=== PATIENT | female | born 1975 | race Caucasian/White ===

== ENCOUNTER 2016-08-16 06:50 | Emergency (ER) | payer BC ==
[2016-08-16 07:07] VITALS: RESP 16; TEMP 98.4
[2016-08-16 07:22] VITALS: O2SAT 96
[2016-08-16 07:41] VITALS: BP 138/91; PULSE 84
== END 2016-08-16 07:33 | disposition home or self-care (01) ==
LOC: ED 06:50
DX: S29.011A Strain of muscle and tendon of front wall of thorax, initial encounter (principal); R05 Cough
CPT/HCPCS: 71020; 99282